=== PATIENT | male | born 1950 | race Caucasian/White ===

== ENCOUNTER 2017-11-08 04:55 | Emergency (ER) | payer OTHER ==
[~2017-11-08] VITALS: Ht 177.8 cm; Wt 113.4 kg
[2017-11-08] MEDS ORDERED: ZANTAC 150MG T150 MG PO (05:02)
[2017-11-08] MEDS ORDERED: ALLEGRA ALLERG180 MG PO (05:02)
[2017-11-08] MEDS ORDERED: ASPIR 8181 MG PO (05:02)
[2017-11-08] MEDS ORDERED: GLUCOPHAGE1000 MG PO (05:03)
[2017-11-08] MEDS ORDERED: ATORVASTATIN CA40 MG PO (05:04)
[2017-11-08] MEDS ORDERED: LISINOPRIL20 MG PO (05:04)
[2017-11-08 05:12] LABS: HEMATOCRIT 42.9 % (42.0-52.0); HEMOGLOBIN 14.8 gm/dL (14.0-18.0); MCH 29.4 pg (26.0-34.0); MCHC 34.6 g/dL (28.0-37.0); MCV 85.1 fL (80.0-100.0); PLATELET COUNT 187 thou/uL (150-400); RBC 5.04 mil/uL (4.50-6.00); RDW 13.6 % (10.5-14.5); WBC 16.5 thou/uL (4.0-11.0)
[2017-11-08 05:21] LABS: CALCIUM 9.2 mg/dL (8.5-10.1); CREATININE 1.1 mg/dL (0.7-1.3); POTASSIUM 3.6 mmol/L (3.5-5.1)
[2017-11-08 05:27] LABS: ALBUMIN 3.1 g/dL (3.4-5.0); TOTAL BILIRUBIN 0.9 mg/dL (<0.1-1.0); TOTAL PROTEIN 7.4 g/dL (6.4-8.2)
[2017-11-08 05:57] LABS: URINE BILIRUBIN NEGATIVE (Negative); URINE BLOOD 3+ (Negative); URINE GLUCOSE-RANDOM* NEGATIVE (Negative); URINE KETONES 3+ (Negative); URINE LEUKOCYTES-REFLEX NEGATIVE (Negative); URINE PROTEIN (DIPSTICK) 2+ (Negative); URINE UROBILINOGEN >= 8.0 E.U./dl (0.2-1.0)
[2017-11-08 06:04] LABS: URINE CLARITY SL CLOUDY; URINE COLOR DARK YELLOW; URINE NITRITE-REFLEX POSITIVE (Negative)
[2017-11-08 06:59] LABS: ABSOLUTE NEUTROPHILS 14.5 thou/uL (1.4-8.2); ANISOCYTOSIS SLIGHT
[2017-11-08] MEDS ORDERED: KEFLEX500 M1 PO (07:00)
[2017-11-08] MEDS ORDERED: SENNA S TABLET1 EACH PO (07:01)
[2017-11-08] MEDS ORDERED: MIRALAX17 GM PO (07:01)
[2017-11-08 07:08] LABS: URINE REDUCING SUBSTANCE NEGATIVE
[2017-11-08 07:10] LABS: CASTS None Seen /LPF (None Seen); MUCUS >6 Heavy strn/LPF (None Seen); SQUAMOUS 4-10 Moderate /LPF (0-3)
[2017-11-08 07:11] LABS: BACTERIA-REFLEX >30 Many /HPF (None Seen); CRYSTALS None Seen /LPF (None Seen); URINE RBC >20 Many /HPF (0-2); URINE WBC-REFLEX >25 Many /HPF (0-5)
== END 2017-11-08 07:36 | disposition still patient (30) ==
LOC: ER 04:55
PROVIDERS: Emergency Medicine
DX: N39.0 Urinary tract infection, site not specified (principal); F17.210 Nicotine dependence, cigarettes, uncomplicated